=== PATIENT | male | born 1950 | race Caucasian/White ===

== ENCOUNTER → 2022-01-02 | Outpatient (CLI) | payer OTHER ==
[~2022-01-02] MED LIST: AMITRIPTYLINE H10 MG PO; AMITRIPTYLINE H25 MG PO; COREG25 MG PO; CYMBALTA 30 MG30 MG PO; FINASTERIDE5 MG PO; FLOMAX 0.4 MG0.4 MG PO; HYDROCHLOROTH12.5 MG PO; HYDROCODON-ACE1 EAC6 PO; LOSARTAN POTASS25 MG PO; MULTIVITAMIN; NORVASC5 MG PO; SULINDAC200 MG PO; TIZANIDINE HCL2 MG PO
[2022-01-02 12:05] LABS: HEMOGLOBIN 15.5 gm/dl (14.0-17.5); RED BLOOD COUNT 5.34 M/UL (4.20-5.50); WHITE BLOOD COUNT 7.1 K/UL (4.5-11.0)
[2022-01-02 12:08] LABS: BUN/CREATININE RATIO 20 (0-10)
== END ==
LOC: EDSTATUS 10:00 → OPSV2 10:00
PROVIDERS: Orthopaedic Surgery
DX: Z01.818 Encounter for other preprocedural examination (principal); M19.011 Primary osteoarthritis, right shoulder; I44.0 Atrioventricular block, first degree; R94.31 Abnormal electrocardiogram [ECG] [EKG]
CPT/HCPCS: 71046; 80048; 85025; 85652; 86140; 93005

== ENCOUNTER → 2022-01-15 | Outpatient (CLI) | payer OTHER ==
[~2022-01-15] MED LIST changes: +ASPIRIN EC81 MG PO
[2022-01-15 12:31] LABS: BUN/CREATININE RATIO 16 (0-10)
== END ==
LOC: LAB 11:20
PROVIDERS: Orthopaedic Surgery
DX: Z01.812 Encounter for preprocedural laboratory examination (principal)
CPT/HCPCS: 36415; 80048; 86850; 86900; 86901

== ENCOUNTER → 2022-01-16 | Day surgery (SDC) | payer OTHER ==
[~2022-01-16] VITALS: Ht 185.4 cm; Wt 116.1 kg
== END | disposition home or self-care (01) ==
LOC: OR 05:25
DX: M19.011 Primary osteoarthritis, right shoulder (principal); M19.012 Primary osteoarthritis, left shoulder; M24.011 Loose body in right shoulder; M06.9 Rheumatoid arthritis, unspecified; M25.711 Osteophyte, right shoulder; I10 Essential (primary) hypertension; I25.10 Atherosclerotic heart disease of native coronary artery without angina pectoris; I25.2 Old myocardial infarction; Z88.1 Allergy status to other antibiotic agents
CPT/HCPCS: 73020; 97161; 97165; 97530; 97535; C1713; C1776; J0171; J0690; J1100; J2001; J2370; J2405; J2704; J2795; J3010; J7120